=== PATIENT | female | born 1965 | race Hispanic/Latino ===

== ENCOUNTER → 2024-07-28 | Outpatient (REF) | payer OTHER ==
[~2024-07-28] MED LIST: IOPAMIDOL 370 MG/ML 100 ML INFUS..BTL INJ ONE
[2024-07-28 14:52] LABS: CREATININE, SERUM 0.77 mg/dL (0.57-1.11)
== END ==
LOC: CT 14:10
PROVIDERS: ATTEND Nurse Practitioner
DX: R10.31 Right lower quadrant pain (principal)
CPT/HCPCS: 36415; 74177; 82565; 84520; Q9967